=== PATIENT | female | born 1980 | race Caucasian/White ===

== ENCOUNTER 2016-08-02 23:10 | Emergency (ER) | payer OTHER ==
[~2016-08-02] VITALS: Ht 160 cm; Wt 85.3 kg
[~2016-08-02 23:10] MED LIST: IBUPROFEN800 M1 PO; NORCO 5/325 MG1 TAB PO
[2016-08-02 23:23] VITALS: BP 112/85
--- NOTE | 2016-08-02 23:33 | NUR ---
PATIENT AMBULATED TO ER BED 8.
--- NOTE | 2016-08-02 23:39 | NUR ---
Patient being evaluated by physician at bedside.
[2016-08-02] MEDS ORDERED: HYDROcodone/APAP 5/325 MG 1 TAB TAB PO ONE (23:45)
[2016-08-02] MEDS ORDERED: ONDANSETRON 4 MG TAB PO ONE (23:45)
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
--- NOTE | 2016-08-03 01:25 | NUR ---
Patient discharged with v/s stable. Written and verbal after care instructions given and explained. Patient alert, oriented and verbalized understanding of instructions. Ambulatory with steady gait. All questions addressed prior to discharge. ID band removed. Patient advised to follow up with PMD. Rx of MOTRIN 600 MG, ZOFRAN ODT 4 MG given. Patient educated on indication of medication including possible reaction and side effects. Opportunity to ask questions provided and answered.
[2016-08-03 01:28] VITALS: BP 114/68
== END 2016-08-03 01:25 | disposition home or self-care (01) ==
LOC: MED 23:10
DX: S06.0X0A Concussion without loss of consciousness, initial encounter (principal); I10 Essential (primary) hypertension; F17.200 Nicotine dependence, unspecified, uncomplicated; V19.9XXA Pedal cyclist (driver) (passenger) injured in unspecified traffic accident, initial encounter; Y93.55 Activity, bike riding; Y92.89 Other specified places as the place of occurrence of the external cause; Y99.8 Other external cause status
CPT/HCPCS: 70450; 81002; 81025; 99284; Q0162

== ENCOUNTER 2017-06-06 23:24 | Emergency (ER) | payer OTHER ==
[~2017-06-06] VITALS: Ht 160 cm; Wt 76.2 kg
[~2017-06-06 23:24] MED LIST changes: +ACET-8386 PO; +IBUP-2218 PO; -IBUPROFEN800 M1 PO; -NORCO 5/325 MG1 TAB PO
[2017-06-06 23:36] VITALS: BP 127/51
--- NOTE | 2017-06-06 23:50 | NUR ---
PATIENT AMBULATED TO ER BED 12.
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
--- NOTE | 2017-06-07 00:29 | NUR ---
Female [employer] LESLIE Cohen accompanied Dr. Hendricks for female patient Pelvic Exam. Swab sent to lab
[2017-06-07 00:37] LABS: APPEARANCE,URINE CLEAR (CLEAR); BILIRUBIN,URINE NEGATIVE (NEGATIVE); BLOOD, URINE 2+ (NEGATIVE); COLOR,URINE YELLOW (YELLOW); LEUKOCYTE ESTERASE ,URINE NEGATIVE (NEGATIVE); NITRITE, URINE NEGATIVE (NEGATIVE); UGLUCOSE NEGATIVE (NEGATIVE)
[2017-06-07] MEDS ORDERED: IBUPROFEN 800 MG TAB PO ONE (00:45)
[2017-06-07 00:53] LABS: RBC,URINE 3-10 (FEW) /HPF (0-5); WBC,URINE 0-5 (RARE) /HPF (0-5)
[2017-06-07 02:00] VITALS: BP 119/62
--- NOTE | 2017-06-07 02:00 | NUR ---
Patient discharged with v/s stable. Written and verbal after care instructions given and explained. Patient alert, oriented and verbalized understanding of instructions. Ambulatory with steady gait. All questions addressed prior to discharge. ID band removed. Patient advised to follow up with PMD. Rx of DIFLUCAN 150MG AND IBUPROFEN 800MG given. Patient educated on indication of medication including possible reaction and side effects. Opportunity to ask questions provided and answered.
== END 2017-06-07 02:00 | disposition home or self-care (01) ==
LOC: MED 23:24
DX: B37.9 Candidiasis, unspecified (principal); N83.201 Unspecified ovarian cyst, right side; K59.00 Constipation, unspecified; I10 Essential (primary) hypertension
CPT/HCPCS: 81001; 81025; 87210; 99285

== ENCOUNTER 2018-05-04 18:38 | Emergency (ER) | payer OTHER ==
[~2018-05-04] VITALS: Ht 162.6 cm; Wt 84.1 kg
[2018-05-04 18:40] VITALS: BP 132/82
[2018-05-04 20:42] VITALS: BP 132/82
== END 2018-05-04 20:42 | disposition home or self-care (01) ==
LOC: MED 18:38
DX: K59.00 Constipation, unspecified (principal); I10 Essential (primary) hypertension; F20.9 Schizophrenia, unspecified; Z79.899 Other long term (current) drug therapy
CPT/HCPCS: 74018; 99283

== ENCOUNTER 2020-06-10 21:17 | Emergency (ER) | payer OTHER ==
[~2020-06-10] VITALS: Ht 160 cm; Wt 90.7 kg
[2020-06-10 21:23] VITALS: BP 120/85
--- NOTE | 2020-06-10 21:23 | NUR ---
TO BED AMBULATORY
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
[2020-06-10] MEDS ORDERED: ACETAMINOPHEN 325 MG TAB PO ONE (22:05)
--- NOTE | 2020-06-10 22:10 | NUR ---
PT GOT UP AND AMBULATED TO RESTROOM WITHOUT ASSISTANCE, WAS ABLE TO WALK WITH A LIMP
--- NOTE | 2020-06-10 22:26 | NUR ---
ULTRASOUND AT BEDSIDE
--- NOTE | 2020-06-10 22:56 | NUR ---
X-RAY AT BEDSIDE
[2020-06-10 23:33] VITALS: BP 120/85
== END 2020-06-10 23:33 | disposition home or self-care (01) ==
LOC: MED 21:17
DX: S83.8X1A Sprain of other specified parts of right knee, initial encounter (principal); X58.XXXA Exposure to other specified factors, initial encounter; Y93.89 Activity, other specified; Y92.89 Other specified places as the place of occurrence of the external cause; Y99.8 Other external cause status
CPT/HCPCS: 73590; 93971; 99284; J7060

== ENCOUNTER 2022-08-13 17:18 | Emergency (ER) | payer OTHER ==
[~2022-08-13] VITALS: Ht 160 cm; Wt 94.8 kg
[~2022-08-13 17:18] MED LIST changes: -ACET-8386 PO; +ACET-8905 PO
[2022-08-13 17:23] VITALS: BP 116/86
[2022-08-13] MEDS ORDERED: NAPROXEN 500 MG TAB PO STA (19:37)
--- NOTE | 2022-08-13 19:48 | NUR ---
PT TO BED 8
--- NOTE | 2022-08-13 19:50 | NUR ---
Patient resting in bed, A/Ox4, chest rise and fall symmetrical, no s/s of distress, on monitor.
[2022-08-13] MEDS ORDERED: NAPR-54 PO (20:09)
[2022-08-13] MEDS ORDERED: LID5T TP (20:09)
[2022-08-13] MEDS ORDERED: KETOROLAC 30 MG/ML VIAL IM ONE (20:15)
[2022-08-13 20:25] VITALS: BP 119/74
== END 2022-08-13 20:26 | disposition home or self-care (01) ==
LOC: MED 17:18
DX: S80.812A Abrasion, left lower leg, initial encounter (principal); S90.812A Abrasion, left foot, initial encounter; M25.552 Pain in left hip; M25.452 Effusion, left hip; I10 Essential (primary) hypertension; Z79.899 Other long term (current) drug therapy; Z79.1 Long term (current) use of non-steroidal anti-inflammatories (NSAID); Z79.891 Long term (current) use of opiate analgesic; V23.99XA Unspecified rider of other motorcycle injured in collision with car, pick-up truck or van in traffic accident, initial encounter; Y93.89 Activity, other specified; Y92.410 Unspecified street and highway as the place of occurrence of the external cause; Y99.8 Other external cause status
CPT/HCPCS: 73502; 96372; 99283; J1885